=== PATIENT | male | born 1950 | race Caucasian/White ===

== ENCOUNTER 2020-04-13 07:51 | Day surgery (SDC) | payer MEDICARE, OTHER ==
[~2020-04-13] VITALS: Ht 182.9 cm; Wt 88.8 kg
[~2020-04-13 07:51] MED LIST: ALBU90OI INH; ALBU90OI6; AMIT25; AZELASTINE137 MCG/0.; BUDE6HFA; CALCIUM CIT 311 EAC7 PO; ESOM20; FAMO10 PO; FINA5; Flomax0.4 MG PO; Flonase 0.05% N16 GM; GUAIFEN-CODEINE10 ML; Glucosamine Ch1 EAC4; Hair, Skin & N1 EACH PO; MONT10T PO; MSM1000 M3 PO; Revatio20 MG PO; SYMBICORT 160-4.6 GM INH; TAMS.4ER; THERA-D2000 UNIT PO; TRAM50 PO; ZYRTEC10 M1; [UNRECOGNIZED DRUG - OTHER]
--- NOTE | 2020-04-13 08:23 | NUR ---
04/13/20 0823 Thea Millard 1 TRY RIGHT HAND VALVE
[2020-07-18] MEDS ORDERED: MELATONIN5 M1 PO (12:08)
== END 2020-04-13 10:01 | disposition home or self-care (01) ==
LOC: ORSCSDS 07:51
PROVIDERS: Internal Medicine Gastroenterology
PROC: 0DJ08ZZ Inspection of Upper Intestinal Tract, Via Natural or Artificial Opening Endoscopic (ICD-10-PCS; principal; 2020-04-13 09:00)
PROC: 0DBP8ZX Excision of Rectum, Via Natural or Artificial Opening Endoscopic, Diagnostic (ICD-10-PCS; principal; 2020-04-13 09:00)
DX: K21.9 Gastro-esophageal reflux disease without esophagitis (principal); K62.1 Rectal polyp; K64.8 Other hemorrhoids; Z12.11 Encounter for screening for malignant neoplasm of colon; Z86.010 Personal history of colon polyps; G47.33 Obstructive sleep apnea (adult) (pediatric); Z79.899 Other long term (current) drug therapy
CPT/HCPCS: 88305; J2704; J7120

== ENCOUNTER 2020-07-24 07:43 | Day surgery (SDC) | payer MEDICARE, OTHER ==
[~2020-07-24] VITALS: Ht 182.9 cm; Wt 87.6 kg
[~2020-07-24 07:43] MED LIST changes: +MELATONIN5 M1 PO
--- NOTE | 2020-07-24 09:11 | NUR ---
Ambulatory in Day Surgery. History, Chart, Medications and Allergies reviewed before start of procedure. Lungs clear T/O to Auscultation. Patient confirms NPO status and agrees with scheduled surgery. Pre-Op teaching done. Pt verbalizes understanding. Patient States Post-Procedure ride home has been arranged.
--- NOTE | 2020-07-24 15:59 | NUR ---
Dressing to procedure site clean, dry, intact with no visible drainage, swelling, erythema or bruising noted.
--- NOTE | 2020-07-24 17:01 | NUR ---
Discharge instructions reviewed with patient. Patient verbalizes understanding. Copy given to patient to take home.
--- NOTE | 2020-07-24 17:02 | NUR ---
PT TOLERATING PO FLUIDS
--- NOTE | 2020-07-24 17:19 | NUR ---
Discharged via wheelchair to private car for ride home.
== END 2020-07-24 17:28 | disposition home or self-care (01) ==
LOC: ORSCMMR 07:43 → ORD 09:00 → ORSCMMR 09:00
PROVIDERS: Surgery
PROC: 0YUA4JZ Supplement Bilateral Inguinal Region with Synthetic Substitute, Percutaneous Endoscopic Approach (ICD-10-PCS; principal; 2020-07-24 09:00)
PROC: 8E0W4CZ Robotic Assisted Procedure of Trunk Region, Percutaneous Endoscopic Approach (ICD-10-PCS; principal; 2020-07-24 09:00)
PROC: 0WQF0ZZ Repair Abdominal Wall, Open Approach (ICD-10-PCS; principal; 2020-07-24 09:00)
DX: K42.9 Umbilical hernia without obstruction or gangrene (principal); K40.30 Unilateral inguinal hernia, with obstruction, without gangrene, not specified as recurrent; K40.90 Unilateral inguinal hernia, without obstruction or gangrene, not specified as recurrent; G47.33 Obstructive sleep apnea (adult) (pediatric); K21.9 Gastro-esophageal reflux disease without esophagitis; J45.909 Unspecified asthma, uncomplicated; Z79.899 Other long term (current) drug therapy
CPT/HCPCS: 49650; 49587; S2900; A9270; C1781; J0690; J1100; J1885; J2405; J2704; J3010; J7120

== ENCOUNTER 2021-11-26 01:23 | Day surgery (SDC) | payer MEDICARE, OTHER | END 2021-11-26 09:25 | disposition home or self-care (01) | LOC: ATC 01:23 | DX: J45.909 Unspecified asthma, uncomplicated (principal); G47.33 Obstructive sleep apnea (adult) (pediatric); Z88.1 Allergy status to other antibiotic agents; Z88.8 Allergy status to other drugs, medicaments and biological substances; Z91.018 Allergy to other foods | CPT/HCPCS: J2357 ==

== ENCOUNTER 2021-12-24 02:39 | Day surgery (SDC) | payer MEDICARE, OTHER | END 2021-12-24 10:01 | disposition home or self-care (01) | LOC: ATC 02:39 | DX: J45.909 Unspecified asthma, uncomplicated (principal); G47.33 Obstructive sleep apnea (adult) (pediatric); Z88.1 Allergy status to other antibiotic agents; Z88.8 Allergy status to other drugs, medicaments and biological substances; Z91.018 Allergy to other foods | CPT/HCPCS: 96372; J2357 ==

== ENCOUNTER 2022-02-18 07:50 | Day surgery (SDC) | payer MEDICARE, OTHER ==
[~2022-02-18 07:50] MED LIST changes: +XOLAIR150 MG/1 M SC
== END 2022-02-18 09:57 | disposition home or self-care (01) ==
LOC: ATC 07:50
DX: J45.40 Moderate persistent asthma, uncomplicated (principal)
CPT/HCPCS: J2357

== ENCOUNTER 2023-01-17 08:06 | Day surgery (SDC) | payer MEDICARE ==
[~2023-01-17] VITALS: Ht 181 cm; Wt 87.0 kg
[~2023-01-17 08:06] MED LIST changes: +AZIT500 PO; +CETI5 PO; +GLUCHON PO; +OMEP20ER PO
[2023-01-17 08:33] VITALS: BP 139/91
--- NOTE | 2023-01-17 10:14 | NUR ---
01/17/23 1014 Guanako Montero MONITOR INTACT WITH CONTINUOUS PULSE OXIMETRY, CONTINUOUS END TITAL CO2, AND INTERMITTENT BLOOD PRESSURE. AND EKG MAC PER DR. HUDDLESTON
[2023-01-17 10:50] VITALS: BP 122/89
[2023-01-17 11:00] VITALS: BP 122/89
--- NOTE | 2023-01-17 11:15 | NUR ---
Patient up to Ambulate independently. Gait steady. Discharge instructions reviewed with patient. Patient verbalizes understanding. Copy given to patient to take home. Patient States Post-Procedure ride home has been arranged. Discharged via wheelchair to private car for ride home.
== END 2023-01-17 11:15 | disposition home or self-care (01) ==
LOC: ORSCMMR 08:06 → ORD 09:30 → ORSCMMR 11:15
PROVIDERS: Internal Medicine Gastroenterology
PROC: 0DBL8ZX Excision of Transverse Colon, Via Natural or Artificial Opening Endoscopic, Diagnostic (ICD-10-PCS; principal; 2023-01-17 09:30)
PROC: 0DBH8ZX Excision of Cecum, Via Natural or Artificial Opening Endoscopic, Diagnostic (ICD-10-PCS; principal; 2023-01-17 09:30)
DX: Z12.11 Encounter for screening for malignant neoplasm of colon (principal); Z86.010 Personal history of colon polyps; K63.5 Polyp of colon; K57.30 Diverticulosis of large intestine without perforation or abscess without bleeding; K64.8 Other hemorrhoids; Z85.46 Personal history of malignant neoplasm of prostate; G47.33 Obstructive sleep apnea (adult) (pediatric); K21.9 Gastro-esophageal reflux disease without esophagitis; J45.909 Unspecified asthma, uncomplicated; Z79.899 Other long term (current) drug therapy
CPT/HCPCS: 88305; J2704; J7120

== ENCOUNTER 2023-05-27 12:39 | Day surgery (SDC) | payer MEDICARE ==
[~2023-05-27] VITALS: Ht 180.3 cm; Wt 88.5 kg
[~2023-05-27 12:39] MED LIST changes: +Balanced Salt Epinephrine Irrigation Solution 500 mL IR SCH; +Guaifenesin Wit10 ML PO; +Lidocaine HCl/Pf 1% 5 ML VIAL XX SCH; +Moxifloxacin HCL 0.5 MG/0.1 ML 0.4MLSYR LEFTEYE SCH; +NS 500 ML IV ONE; +PHENYLEPHRINE\\TROPICAMIDE\\TETRACAINE OPHTHALMIC DILATING SOLN LEFTEYE PRN; +PRED20 PO; +Povidone-Iodine 450 DROP/30 ML Solution LEFTEYE SCH; +Povidone-Iodine 450 DROP/30 ML Solution ONE
[2023-05-27] MEDS ORDERED: TRELEGY ELLIPT1 EACH IH (12:56)
--- NOTE | 2023-05-27 13:01 | NUR ---
05/27/23 1301 Silvia Jacobs AT [address] AT [id number]
[2023-05-27] MEDS ORDERED: NS 500 ML IV ONE (13:08)
[2023-05-27] MEDS ORDERED: Midazolam HCl 1MG / ML 2ML Vial ONE (13:22)
[2023-05-27] MEDS ORDERED: FentaNYL Citrate 50 MCG/ML 2 ML Injection ONE (13:22)
[2023-05-27] MEDS ORDERED: Tetracaine HCl 0.5% Opth Soln 15 ml LEFTEYE ONE (13:24)
[2023-05-27 14:12] VITALS: BP 127/97
== END 2023-05-27 14:03 | disposition home or self-care (01) ==
LOC: ORSCSDS 12:39
PROVIDERS: Student in an Organized Health Care Education/Training Program
PROC: 08RK3JZ Replacement of Left Lens with Synthetic Substitute, Percutaneous Approach (ICD-10-PCS; principal; 2023-05-27 13:45)
DX: H25.12 Age-related nuclear cataract, left eye (principal); H52.202 Unspecified astigmatism, left eye; Z96.1 Presence of intraocular lens; J45.909 Unspecified asthma, uncomplicated; G47.33 Obstructive sleep apnea (adult) (pediatric); G25.81 Restless legs syndrome; Z85.46 Personal history of malignant neoplasm of prostate; Z79.899 Other long term (current) drug therapy
CPT/HCPCS: J2250; J3010; J7040; V2632

== ENCOUNTER 2023-11-06 06:52 | Day surgery (SDC) | payer MEDICARE ==
[2023-11-06] VITALS (8 sets, daily range): BP systolic 119–156; BP diastolic 85–97
[~2023-11-06] VITALS: Ht 180.3 cm; Wt 90.0 kg
[~2023-11-06 06:52] MED LIST changes: +AZELASTINE205.5 MCG1 NS; -Balanced Salt Epinephrine Irrigation Solution 500 mL IR SCH; -Lidocaine HCl/Pf 1% 5 ML VIAL XX SCH; -Moxifloxacin HCL 0.5 MG/0.1 ML 0.4MLSYR LEFTEYE SCH; -NS 500 ML IV ONE; -PHENYLEPHRINE\\TROPICAMIDE\\TETRACAINE OPHTHALMIC DILATING SOLN LEFTEYE PRN; -Povidone-Iodine 450 DROP/30 ML Solution LEFTEYE SCH; -Povidone-Iodine 450 DROP/30 ML Solution ONE; +SILD50TA PO; +TRELEGY ELLIPT1 EACH IH; +ZYRTEC10 M2 PO; -[UNRECOGNIZED DRUG - OTHER]
[2023-11-06] MEDS ORDERED: Citrucel500 MG PO (07:16)
[2023-11-06] MEDS ORDERED: TEZSPIRE210 MG/1.1 SC (07:18)
[2023-11-06] MEDS ORDERED: Verapamil HCL 2.5 MG/ML 2ML Injection ONE (07:42)
[2023-11-06] MEDS ORDERED: NS 500 ML IV ONE (07:43)
[2023-11-06] MEDS ORDERED: NS 1,000 ML IV ONE ×2 (07:43→08:33)
[2023-11-06] MEDS ORDERED: Heparin Sodium 1000 Units/ML 10ML MDV ONE (07:43)
[2023-11-06] MEDS ORDERED: Nitroglycerin 2 MG/20 ML BTL ONE (07:43)
[2023-11-06] MEDS ORDERED: NS 250 ML IV ONE (07:50)
[2023-11-06] MEDS ORDERED: FentaNYL Citrate 50 MCG/ML 2 ML Injection ONE ×2 (08:33→09:16)
[2023-11-06] MEDS ORDERED: Midazolam HCl 1MG / ML 2ML Vial ONE ×2 (08:33→09:33)
[2023-11-06] MEDS ORDERED: Ketorolac Tromethamine 30mg Vial ONE (10:36)
--- NOTE | 2023-11-06 12:05 | NUR ---
Pt back to recovery room. pt alert and oriented. folling instructions to keep head and legs down flat. pt spouse to bedside. pt denies pain. r rhiannon site soft, no hematoma or bleeding.
--- NOTE | 2023-11-06 13:19 | NUR ---
groin site soft and non-tender per pt. no bleeding noted. pt given water per request.
--- NOTE | 2023-11-06 14:08 | NUR ---
PT AND VERBALIZED UNDERSTANDING OF WRITTEN AND VERBAL D/C INST. IV REMOVED. PT AMB TO BATHROOM /C SBA. NEG BLEEDING OR SWELLING R GROIN AREA. PT TAKEN OUT OF THE HRT CENTER VIA W/C.
== END 2023-11-06 15:18 | disposition home or self-care (01) ==
LOC: MHTC 06:52
DX: N40.1 Benign prostatic hyperplasia with lower urinary tract symptoms (principal); R39.14 Feeling of incomplete bladder emptying; R35.0 Frequency of micturition; R35.1 Nocturia; G47.33 Obstructive sleep apnea (adult) (pediatric); J45.909 Unspecified asthma, uncomplicated; Z88.1 Allergy status to other antibiotic agents; Z88.8 Allergy status to other drugs, medicaments and biological substances; Z79.899 Other long term (current) drug therapy
CPT/HCPCS: 37242; 75716; 75774; 76937; 99152; 99153; C1760; C1769; C1887; C1894; J1644; J1885; J2250; J3010; J7030; J7050; Q9967

== ENCOUNTER → 2024-07-26 | Outpatient (CLI) | payer MEDICARE ==
[~2024-07-26] MED LIST changes: +Citrucel500 MG PO; +TEZSPIRE210 MG/1.1 SC
== END ==
LOC: LAB SHORT 07:35 → LAB 07:35
DX: R05.3 Chronic cough (principal)
CPT/HCPCS: 87070; 87116; 87205

== ENCOUNTER → 2024-08-30 | Outpatient (CLI) | payer MEDICARE ==
[2024-08-30 12:24] LABS: BODY FLUID RBC 0.008 M/mm3 (0-0)
[2024-08-30 12:26] LABS: RBC Count, Synovial Fluid 8000 /mm3 (0-0); WBC Count, Synovial Fluid 603 /mm3 (0-180)
[2024-08-30 13:00] LABS: Appearance, Synovial Fluid Hazy (Clear); Color, Synovial Fluid Dark Yellow (None-P Yel)
[2024-08-30 13:11] LABS: Lymphs, Synovial Fluid 8 % (0-15); Monocytes/Macrophages, Synovia 52 % (0-65); Neutrophils, Synovial Fluid 40 % (0-24)
== END ==
LOC: LAB SHORT 11:14 → LAB 11:14
PROVIDERS: Physician Assistant Medical
DX: M25.569 Pain in unspecified knee (principal)
CPT/HCPCS: 87070; 87075; 87205; 89051

== ENCOUNTER 2024-11-01 09:50 | Day surgery (SDC) | payer MEDICARE ==
[~2024-11-01] VITALS: Ht 180.3 cm; Wt 86.8 kg
[~2024-11-01 09:50] MED LIST changes: +Lidocaine 1%-Epineph 1:100000 20 ML MDV ONE; +Lidocaine HCl 2% 10 ML SDA ONE
[2024-11-01] MEDS ORDERED: CeFAZolin Sodium 2,000 MG VIAL ONE (11:07)
[2024-11-01] MEDS ORDERED: Midazolam HCl 1MG / ML 2ML Vial ONE (11:47)
[2024-11-01] MEDS ORDERED: FentaNYL Citrate 50 MCG/ML 2 ML Injection ONE (11:47)
[2024-11-01 12:12] VITALS: BP 139/94
== END 2024-11-01 12:45 | disposition home or self-care (01) ==
LOC: ORSCSDS 09:50
PROVIDERS: Orthopaedic Surgery
PROC: 0MB40ZZ Excision of Left Elbow Bursa and Ligament, Open Approach (ICD-10-PCS; principal; 2024-11-01 11:30)
DX: M70.22 Olecranon bursitis, left elbow (principal); G47.33 Obstructive sleep apnea (adult) (pediatric); K21.9 Gastro-esophageal reflux disease without esophagitis; J45.909 Unspecified asthma, uncomplicated; G25.81 Restless legs syndrome; Z79.899 Other long term (current) drug therapy
CPT/HCPCS: J0690; J2003; J2250; J3010; J7120